=== PATIENT | female | born 1940 | race Two or more races ===

== ENCOUNTER 2023-12-12 12:21 | Outpatient (REF) | payer MEDICARE, OTHER, SELFPAY | END 2023-12-12 12:22 | disposition home or self-care (01) | LOC: HO.BBR 12:21 | PROVIDERS: PCP Internal Medicine; Visit Provider Internal Medicine Hematology & Oncology | DX: D75.1 Secondary polycythemia (principal) | CPT/HCPCS: 85014; 85018; 99195 ==

== ENCOUNTER 2023-12-26 12:04 | Outpatient (REF) | payer MEDICARE, OTHER, SELFPAY | END 2023-12-26 12:05 | disposition home or self-care (01) | LOC: HO.BBR 12:04 | PROVIDERS: PCP Internal Medicine; Visit Provider Internal Medicine Hematology & Oncology | DX: D75.1 Secondary polycythemia (principal) | CPT/HCPCS: 85014; 85018; 99195 ==